=== PATIENT | female | born 1965 | race Asian ===

== ENCOUNTER 2021-03-24 09:39 | Outpatient (CLI) | payer SELFPAY ==
[2021-03-24 10:58] LABS: HF Add Manual Diff No
[2021-03-24 11:09] LABS: Basophils # 0.1 10^3/uL (0.0-0.1); Basophils % 0.9 %; Eosinophils # 0.2 10^3/uL (0.0-0.8); Eosinophils % 3.2 %; Hematocrit 42.6 % (37.0-47.0); Hemoglobin 13.9 g/dL (11.5-15.3); Lymphocytes # 2.5 10^3/uL (0.8-4.8); Lymphocytes % 43.6 %; Mean Corpuscular HGB Conc 32.6 g/dL (30.0-36.0); Mean Corpuscular Hemoglobin 31.2 pg (28.0-34.0); Mean Corpuscular Volume 95.7 fL (81-99); Mean Platelet Volume 8.9 fL (7.4-10.4); Monocytes # 0.4 10^3/uL (0.2-0.9); Monocytes % 6.9 %; Neutrophils # 2.56 10^3/uL (1.8-7.7); Neutrophils % 45.2 %; Nucleated Red Blood Cells % 0 %; Platelet Count 282 10^3/cmm (130-400); Red Blood Count 4.45 10^6/uL (4.1-5.3); Red Cell Distribution Width 12.1 % (12.1-15.1); White Blood Count 5.7 10^3/uL (4.0-10.0)
[2021-03-24 11:49] LABS: 25 Hydroxy Vitamin D 27 ng/mL (30-100); Alanine Aminotransferase 16 U/L (0-33); Albumin Level 4.3 g/dL (3.5-5.2); Alkaline Phosphatase 57 IU/L (35-105); Aspartate Amino Transferase 18 U/L (0-32); Blood Urea Nitrogen 15 mg/dL (6-20); Calcium 8.8 mg/dL (8.5-10.5); Carbon Dioxide 29 mmol/L (22-29); Chloride 101 mmol/L (98-107); Chol HDL Ratio 3.49 mg/dL (0.0-4.40); Cholesterol 220 mg/dL (0-200); Globulin 3.1 g/dL (1.3-4.6); Glomerular Filtration Rate 129.1 mL/min (90-130); Glucose 100 mg/dL (65-115); HDL Cholesterol 63 mg/dL (60-100); LDL Cholesterol Calculated 136 mg/dL (50-129); LDL HDL Ratio 2.16 RATIO (0.00-3.22); Osmolality Calculated 289 mOsm/kg (285-295); Sodium 139 mmol/L (136-145); Thyroid Stimulating Hormone 3.55 uIU/mL (0.27-4.20); Total Bilirubin 0.7 mg/dL (0.15-1.2); Total Protein 7.4 g/dL (6.6-8.7); Triglycerides 105 mg/dL (0-150)
[2021-03-24 11:52] LABS: Anion Gap 13.1 (5-19); Potassium 4.1 mmol/L (3.5-5.1)
[2021-03-24 11:58] LABS: Estmated Average Glucose 97
== END 2021-03-24 09:40 | disposition home or self-care (01) ==
LOC: LAB 09:43
PROVIDERS: Visit Provider Dermatology
DX: Z13.9 Encounter for screening, unspecified (principal)
CPT/HCPCS: 36415

== ENCOUNTER 2022-03-03 12:24 | Outpatient (CLI) | payer SELFPAY ==
--- NOTE | 2022-03-03 | US_ITS ---
WS: [id number] Pelvic ultrasound, 03/03/2022 Clinical Data: OVARIAN CYST RIGHT Comparison: None. Findings: The uterus measures 7.2 cm x 4.7 cm x 4.0 cm. There is a small fibroid measuring 1.9 x 2.0 x 2.3 cm. The endometrium is 0.17 cm. No intrauterine or abnormal intrauterine mass is seen. The cervical length is 3.26 cm. The left ovary measures 1.9 cm x 2.3 cm x 1.3 cm with no cysts or masses. The right ovary measures 2.2 cm x 2.2 cm x 1.1 cm with no cysts or masses. There is minimal fluid in the cul-de-sac. US/US pelvic with transvaginal Impression: Small uterine fibroid.
== END 2022-03-03 12:25 | disposition home or self-care (01) ==
LOC: RADOUTREAD 12:28
PROVIDERS: Visit Provider Family Medicine
DX: N83.201 Unspecified ovarian cyst, right side (principal); D25.9 Leiomyoma of uterus, unspecified
CPT/HCPCS: 76830; 76856